=== PATIENT | male | born 1950 | race Caucasian/White ===

== ENCOUNTER 2019-11-01 08:30 | Inpatient (IN) | payer MEDICARE, BC ==
[2019-12-15] MEDS ORDERED: Thrombin 5000 UNITS/5 ML VIAL ONE (06:24)
[2019-12-15] MEDS ORDERED: Fentanyl 100 MCG/2 ML VIAL ONE ×2 (06:56→10:34)
[2019-12-15] MEDS ORDERED: Morphine Sulfate 2 MG/ML SYRINGE SLOW IVP PRN (09:37)
[2019-12-15] MEDS ORDERED: Promethazine HCl 25 MG/ML VIAL SLOW IVP PRN (09:37)
[2019-12-15] MEDS ORDERED: PACU-Morphine 4MG/ML VIAL SLOW IVP PRN (09:37)
[2019-12-15] MEDS ORDERED: Promethazine HCl 25 MG/ML VIAL IM PRN (09:37)
[2019-12-15] MEDS ORDERED: HYDROmorphone 2 MG/ML VIAL SLOW IVP PRN (09:37)
[2019-12-15] MEDS ORDERED: Ondansetron HCl/PF 4 MG/2 ML Vial IVP PRN (09:37)
[2019-12-15] MEDS ORDERED: Dexamethasone 20 MG/5 ML VIAL ONE (10:05)
[2019-12-15] MEDS ORDERED: Rocuronium Bromide 10 MG/ML (10ML VIAL) ONE (10:05)
[2019-12-15] MEDS ORDERED: PROPOFOL 200 MG/20 ML VIAL ONE (10:05)
[2019-12-15] MEDS ORDERED: Metoclopramide HCl 10 MG/2 ML VIAL ONE (10:05)
[2019-12-15] MEDS ORDERED: Lidocaine 1% PF 5 ML VIAL ONE ×2 (10:05)
[2019-12-15] MEDS ORDERED: Glycopyrrolate 0.2 MG/ML 5 ML SYRINGE ONE (10:05)
[2019-12-15] MEDS ORDERED: Ondansetron PF 4 MG/2 ML Vial ONE (10:05)
[2019-12-15] MEDS ORDERED: PHENYLEPHRINE-NS 100 MCG/ML 10 ML SYRINGE ONE (10:05)
[2019-12-15] MEDS ORDERED: traMADol HCl 50 MG TAB PO PRN (10:31)
[2019-12-15] MEDS ORDERED: Ondansetron PF 4 MG/2 ML Vial IVP PRN (10:31)
[2019-12-15] MEDS ORDERED: diphenhydrAMINE 25 MG CAP PO PRN (10:31)
[2019-12-15] MEDS ORDERED: Mag-Al 1200 mg/1200 mg/30 ML UDCUP PO PRN (10:31)
[2019-12-15] MEDS ORDERED: Bisacodyl 10 MG SUPP PR PRN (10:31)
[2019-12-15] MEDS ORDERED: Fleet Enema 133 ML BOT PR PRN (10:31)
[2019-12-15] MEDS ORDERED: Milk Of Magnesia 30 ML UDCUP PO PRN (10:31)
[2019-12-15] MEDS ORDERED: hydrALAZINE 20 MG/ML VIAL ONE (11:06)
[2019-12-15] MEDS ORDERED: tiZANidine HCl 4 MG TAB ONE (11:43)
[2019-12-15] MEDS: Ketorolac Tromethamine 30 MG/ML VIAL IVP PRN ×2 (13:23→20:12)
[2019-12-15] MEDS: Sodium Chloride 0.9% 1,000 ML IV SCH (13:23)
--- NOTE | 2019-12-15 15:27 | OP ---
DATE OF PROCEDURE: 12/15/2019 SURGEON: Christian Grossman MD [employer] ENGINEERING TECHNICIAN: Malathi Ramirez PA-C PREPROCEDURE DIAGNOSIS: Multilevel cervical stenosis with neck and arm pain. POSTPROCEDURE DIAGNOSIS: Multilevel cervical stenosis with neck and arm pain. PROCEDURES: 1. Anterior C4-C5, C5-C6, and C6-C7 diskectomies for decompression of spinal cord nerve roots. 2. Placement of interbody spacer C4-C5, C5-C6, and C6-C7. 3. Arthrodesis C4-C5, C5-C6, and C6-C7 with allograft. 4. Use of operative microscope for microdissection. DESCRIPTION OF PROCEDURE: After informed consent was obtained from the patient, the patient was brought to the OR. Proper patient, pause, and identification were carried out. He was placed under excellent general endotracheal anesthesia. A right anterior oblique tessy was drawn on the anterior neck. This area was sterilely cleansed, prepared, and draped. Proper patient, pause, and identification were carried out. The wound was then opened with a combination of sharp, monopolar, and blunt dissection. C4, C5, C6, and C7 segments were exposed following a procession lateral to the tracheoesophageal bundle, and medial to the right carotid sheath. Identified each of the segments. Distraction then occurred at C4-C5 following localization and we then performed distraction at C4-C5, diskectomy at C4 through C5 with excellent decompression of neural elements and placed an interbody spacer packed with graft at C4-C5, initiated arthrodesis, it was repeated at C5-C6 and C6-C7. Following placement of interbody spacers at each of the 3 segments, decompression of neural elements at each of the 3 places for arthrodesis and removed the microscope and anterior cervical plate and screw fixation at C4 down to C7 then occurred. Copious irrigation occurred throughout as did maximizing hemostasis. The wound was then closed in anatomic layers following placement of . Job ID: [id number]
[2019-12-15 16:29] VITALS: BMI 24.8
[2019-12-15] MEDS: Morphine 2 MG/ML VIAL SLOW IVP PRN ×3 (16:53→20:13)
[2019-12-15] MEDS: CEFAZOLIN 2 GM in Premix Bag 1 BAG IVPB SCH ×2 (16:54→20:14)
[2019-12-15] MEDS: metFORMIN 500 MG TAB PO SCH (18:04)
[2019-12-15] MEDS ORDERED: Insulin Regular 300 UNITS/3 ML VIAL SC PRN (18:41)
[2019-12-15] MEDS ORDERED: Dextrose 50% Abboject 50 ML SYRINGE IVP PRN (18:41)
[2019-12-15] MEDS ORDERED: Dextrose 5% in Water 1,000 ML IV PRN (18:41)
[2019-12-15] MEDS: Carvedilol 25 MG TAB PO SCH (20:13)
[2019-12-15] MEDS ORDERED: Atorvastatin Calcium 20 MG TAB PO SCH (21:00)
[2019-12-15] MEDS: hydrALAZINE 20 MG/ML VIAL SLOW IVP PRN (21:13)
[2019-12-15] MEDS: tiZANidine HCl 4 MG TAB PO PRN (23:34)
[2019-12-16] MEDS: Ketorolac Tromethamine 30 MG/ML VIAL IVP PRN ×2 (03:35→08:11)
[2019-12-16] MEDS: hydrALAZINE 20 MG/ML VIAL SLOW IVP PRN (03:39)
[2019-12-16] MEDS: Sodium Chloride 0.9% 1,000 ML IV SCH (03:45)
[2019-12-16] MEDS: CEFAZOLIN 2 GM in Premix Bag 1 BAG IVPB SCH (06:06)
[2019-12-16 07:56] VITALS: BP 160/74; TEMP 98.2
[2019-12-16] MEDS: Carvedilol 25 MG TAB PO SCH (08:10)
[2019-12-16] MEDS: tiZANidine HCl 4 MG TAB PO PRN (08:10)
[2019-12-16] MEDS: metFORMIN 500 MG TAB PO SCH (08:14)
[2019-12-16] MEDS ORDERED: Insulin Glargine 18 UNITS in Pre-Filled Syringe 1 EACH SC SCH (09:00)
[2019-12-16] MEDS ORDERED: Prevnar 13-Val Conj/PF 0.5 ML SYRINGE IM ONE (09:00)
[2019-12-16] MEDS ORDERED: Hydrochlorothiazide 25 MG TAB PO SCH (09:00)
[2019-12-16] MEDS ORDERED: Pioglitazone HCl 15 MG TAB PO SCH (09:00)
[2019-12-16] MEDS ORDERED: INSULIN DEGLUDEC 18 UNIT SQ SCH (09:00)
[2019-12-16] MEDS ORDERED: Empagliflozin 25 MG TAB PO SCH (09:00)
[2019-12-16] MEDS ORDERED: Losartan 25 MG TAB PO SCH (09:00)
--- NOTE | 2019-12-16 09:42 | PRG ---
DATE OF SERVICE: 12/16/2019 Mr. Jacobs is postop day #1 from C4 through C7 ACDF. His arm pain is better. He is doing well in regard to neck pain he is neurologically intact. We will plan for discharge. Job ID: [id number]
== END 2019-12-16 10:15 | disposition home or self-care (01) | DRG 473 ==
LOC: SURG A 12-15 05:47 → ONC 12-15 12:20
PROVIDERS: ADMIT Surgery; ATTEND Surgery
PROC: 0RG20A0 Fusion of 2 or more Cervical Vertebral Joints with Interbody Fusion Device, Anterior Approach, Anterior Column, Open Approach (ICD-10-PCS; principal; 2019-12-15)
PROC: 0RT30ZZ Resection of Cervical Vertebral Disc, Open Approach (ICD-10-PCS; 2019-12-15)
PROC: 01N10ZZ Release Cervical Nerve, Open Approach (ICD-10-PCS; 2019-12-15)
DX: M48.02 Spinal stenosis, cervical region (principal); M54.12 Radiculopathy, cervical region; I10 Essential (primary) hypertension; E78.5 Hyperlipidemia, unspecified; J30.2 Other seasonal allergic rhinitis; E11.9 Type 2 diabetes mellitus without complications; Z79.4 Long term (current) use of insulin; Z98.42 Cataract extraction status, left eye; Z98.41 Cataract extraction status, right eye; Z98.61 Coronary angioplasty status
CPT/HCPCS: 36416; 76000; C1713; C1776; J0360; J0690; J1100; J1815; J1885; J2270; J2405; J2704; J2765; J3010; J3490

== ENCOUNTER 2019-12-12 06:28 | Outpatient (CLI) | payer MEDICARE, BC, OTHER ==
[2019-12-12 11:00] LABS: PTT 34.1 sec (22.9-36.1); Prothrombin Time 12.7 sec (12.0-14.7)
[2019-12-12 11:14] LABS: Hemoglobin 14.8 g/dL (14.0-18.0); Mean Corpuscular HGB CONC 31.8 g/dL (32.0-36.0); Mean Corpuscular Hemoglobin 28.9 pg (27.0-31.0); Mean Corpuscular Volume 90.9 fL (78.0-98.0); Mean Platelet Volume 8.3 fL (7.4-10.4); Platelet Count 196 thou/uL (130-400); RBC Distribution Width 13.5 % (11.5-14.5); White Blood Cell (WBC) Count 7.8 thou/uL (4.8-10.8)
[2019-12-12 12:22] LABS: Chloride 103 mmol/L (98-107); Potassium 5.2 mmol/L (3.5-5.1); Sodium 138 mmol/L (136-145)
[2019-12-12 12:23] LABS: Calcium 9.8 mg/dL (7.8-10.44); Glucose 147 mg/dL (80-115)
[2019-12-12 12:25] LABS: Anion Gap 13 mmol/L (10-20); Carbon Dioxide 27 mmol/L (23-31)
[2019-12-12 12:27] LABS: Calc. Creatinine Clearance 0 mL/min (70-130); Estimated GFR-MDRD 60
[2019-12-12 12:28] LABS: BUN (Urea Nitrogen) 25 mg/dL (8.4-25.7)
[2019-12-13 12:06] LABS: SARS-CoV-2 MS2 Positive; SARS-CoV-2 N Gene Negative; SARS-CoV-2 S Gene Negative; SARS-CoV-2 by NAA Not Detected (NotDetected); SARS-CoV-2 orf1ab Negative
== END 2019-12-12 06:29 | disposition home or self-care (01) ==
LOC: LABBT 06:28
PROVIDERS: ATTEND Surgery
DX: Z01.818 Encounter for other preprocedural examination (principal); Z11.59 Encounter for screening for other viral diseases; M48.02 Spinal stenosis, cervical region; M54.12 Radiculopathy, cervical region
CPT/HCPCS: 80048; 85027; 85610; 85730; 93005; U0003; 87635; 93010